=== PATIENT | female | born 1945 | race Caucasian/White ===

== ENCOUNTER 2017-03-01 10:17 | Inpatient (IN) | payer MEDICARE ==
[~2017-03-01] VITALS: Ht 147.3 cm; Wt 63.8 kg
--- NOTE | ~2017-03-01 | CN ---
PATIENT NAME:EDWARD HORN MEDICAL RECORD: [id number] : 43 LOCATION:D[facility] [id number] ADMIT DATE: 03/01/17 ACCOUNT: [id number] CONSULTING PHYSICIAN: DANIELA RODRIGUES MD REFERRING PHYSICIAN: HARJEET ESPINOSA MD DATE OF CONSULTATION: 03/02/2017 CONSULT REQUESTING PHYSICIAN: Harjeet Espinosa MD. REASON FOR CONSULTATION: Pneumonia, acute exacerbation of COPD. HISTORY OF PRESENT ILLNESS: Ms. Horn is a 72-year-old female, who is complaining of shortness of breath, coughing and wheezing for the last 4-5 days. She is also hearing herself wheezing. The cough was productive with a greenish color sputum. There was also associated fever and chills. Denies any chest pain. REVIEW OF SYSTEMS: Mainly in the history of present illness. PAST MEDICAL HISTORY: 1. Asthma. 2. Continued tobacco dependence syndrome. 3. Hypothyroidism. 4. Hypercholesterolemia. 5. Hypertension. PAST SURGICAL HISTORY: Nonsignificant. ALLERGIES: SHE IS ALLERGIC TO ASPIRIN. PRESENT MEDICATIONS: In [employer] was reviewed. PERSONAL AND SOCIAL HISTORY: The patient is still a current every day smoker, almost 1 pack per day. She is a nondrinker. FAMILY HISTORY: Unknown. PHYSICAL EXAMINATION: GENERAL: Now, the patient is lying comfortably in bed. She is in acute distress. VITAL SIGNS: The blood pressure is 128/74, pulse is 78, respiration is 18, temperature 98.4, and SpO2 is 94% on 2 L nasal cannula. HEENT: Conjunctivae are pink. Sclerae nonicteric. NECK: Supple. No JVD. CHEST: There is prolonged expiration with wheezing. HEART: Rate and rhythm regular, normal sound, no murmur. ABDOMEN: Soft, bowel sounds present. No hepatosplenomegaly. RECTAL: Deferred. EXTREMITIES: No cyanosis, no clubbing, no pedal edema. SKIN: Warm. Normal turgor. CENTRAL NERVOUS SYSTEM: The patient is awake and alert. There is no obvious cranial nerve abnormality. The gait was not tested. CHEST RADIOGRAPH: There is infiltrate in the right lower lobe. CONSULT REPORT [id number] [facility] DATA: CBC: WBC is 15.4, hemoglobin 13.1, hematocrit 14.1 and the platelet count 281. Chemistry: Sodium is 140, potassium 4.2, BUN is 25, creatinine 0.9. IMPRESSION: 1. Acute exacerbation of chronic obstructive pulmonary disease. 2. Pneumonia, right lower lobe, most likely community-acquired pneumonia. 3. Acute hypoxic respiratory failure. 4. Tobacco dependence syndrome. 5. Dyspnea. 6. Acute cough. RECOMMENDATION: 1. Albuterol ipratropium nebulizer q.6 hourly. 2. Start Brovana, budesonide nebulizer. Start methylprednisolone IV. Continue Rocephin and Zithromax. 3. Follow up labs and chest radiograph in the morning. Dr. Espinosa, once again, thanks for involving me in the care of Ms. Horn. TRANSINT:[id number] Voice Confirmation ID: [id number] DOCUMENT ID: [id number] DANIELA RODRIGUES MD CC: HARJEET ESPINOSA MD [id number] DICTATION DATE: 03/02/171604 PATIENT APPOINTMENT COORDINATOR: 03/03/17 0055 ADM IN [facility] [address] [id number]
[2017-03-01 11:03] LABS: BASOPHILS 0.2 % (0-2); IMMATURE GRANULOCYTES 0.3 % (0-5); MCH 30.2 pg (26.0-34.0); MONOCYTES 5.4 % (2-11); WBC 12.7 10x3/uL (4.8-10.8)
[2017-03-01 11:37] LABS: EOSINOPHILS 0.1 % (0-7); HEMATOCRIT 43.3 % (36.0-48.0); HEMOGLOBIN 13.9 g/dL (12-16); LYMPHOCYTES 14.3 % (15-50); MCHC 32.1 g/dL (31.0-37.0); MCV 93.9 fL (80.0-100.0); MEAN PLATELET VOLUME 10.2 fL (7.4-10.4); NEUTROPHILS 79.7 % (40-80); PLATELET COUNT 234 10x3/uL (130-400); RBC 4.61 10x6/uL (4.00-5.40); RDW 12.9 % (11.5-14.5)
[2017-03-01 11:48] LABS: ALBUMIN 3.3 g/dL (3.4-5.0); ALKALINE PHOSPHATASE 79 U/L (46-116); ALT (SGPT) 22 U/L (10-68); CALC OSMOLALITY 277 mosm/kg (275-300); CALCIUM 9.2 mg/dL (8.5-10.1); CARBON DIOXIDE 32.9 mmol/L (21.0-32.0); CHLORIDE - SERUM 99 mmol/L (98-107); CREATININE - SERUM 0.7 mg/dL (0.6-1.3); GLUCOSE 114 mg/dL (74-106); PROTEIN - SERUM 7.8 g/dL (6.4-8.2); SODIUM 138 mmol/L (136-145); UREA NITROGEN 16 mg/dL (7-18); eGFR NON AFRICAN AMERICAN 87 mL/min (90-120)
[2017-03-01 11:53] LABS: TROPONIN-I < 0.017 ng/mL (0.000-0.060)
[2017-03-01 12:59] LABS: PRO BNP 66 pg/mL (0-125)
[2017-03-01 16:12] VITALS: BP 134/71; Ht 147.3 cm; Wt 63.8 kg
--- NOTE | 2017-03-01 16:27 | NUR ---
PT ASLEEP AND OXYGEN SAT 88-89%. OXYGEN AT 2LNC APPLIED AND SATS ARE 95%
[2017-03-01] MEDS ORDERED: VENTOLIN HFA18 GM INH (16:36)
[2017-03-01] MEDS ORDERED: COZAAR25 MG PO (16:37)
[2017-03-01] MEDS ORDERED: ARMOUR THYROID30 MG PO (16:38)
[2017-03-01] MEDS ORDERED: POTASSIUM99 M1 PO (16:38)
--- NOTE | 2017-03-01 19:00 | NUR ---
BEDSIDE REPORT RECEIVED AND CARE OF PT ASSUMED. PT LYING IN SEMI SPARROW'S POSITION WATCHING TV. IV IN RIGHT HAND SALINE LOCKED. WILL MONITOR FOR NEEDS.
--- NOTE | 2017-03-01 19:40 | NUR ---
CALLED CERTIFIED PERSONAL TRAINER PHYSICIAN TO INQUIRY ABOUT ORDERS FOR MEDS / DIET. RECEIVED ORDER FOR REGULAR DIET.
--- NOTE | 2017-03-01 19:45 | NUR ---
GAVE SANDWICH TRAY AND DRINK FOR HS SNACK.
[2017-03-01 20:00] VITALS: BP 115/61
[2017-03-02] VITALS: BP 99/59
[2017-03-02 04:00] VITALS: BP 110/53
--- NOTE | 2017-03-02 08:00 | NUR ---
AWAKE AND ALERT AT THIS TIME WAITING ON DR STEWART TO ROUND. PROVIDED WITH COFFEE AT HER REQUEST. DAUGHTER AT BEDSIDE, CALL LIGHT IN REACH. WILL CONTINUE WITH PLAN OF CARE.
[2017-03-02 08:17] VITALS: BP 127/65
[2017-03-02 10:43] LABS: BASOPHILS 0.1 % (0-2); EOSINOPHILS 0 % (0-7); HEMATOCRIT 41.1 % (36.0-48.0); HEMOGLOBIN 13.1 g/dL (12-16); IMMATURE GRANULOCYTES 0.6 % (0-5); LYMPHOCYTES 10.4 % (15-50); MCH 29.8 pg (26.0-34.0); MCHC 31.9 g/dL (31.0-37.0); MCV 93.4 fL (80.0-100.0); MEAN PLATELET VOLUME 10.1 fL (7.4-10.4); MONOCYTES 4.1 % (2-11); NEUTROPHILS 84.8 % (40-80); RDW 12.7 % (11.5-14.5); WBC 15.4 10x3/uL (4.8-10.8)
[2017-03-02 10:45] LABS: PLATELET COUNT 281 10x3/uL (130-400)
[2017-03-02 11:16] LABS: ALBUMIN 3.2 g/dL (3.4-5.0); ANION GAP 10.5 mmol/L (8-16); BILIRUBIN - TOTAL 0.19 mg/dL (0.2-1.3); CALCIUM 9.4 mg/dL (8.5-10.1); CARBON DIOXIDE 31.7 mmol/L (21.0-32.0); POTASSIUM - SERUM 4.2 mmol/L (3.5-5.1); PROTEIN - SERUM 7.9 g/dL (6.4-8.2)
[2017-03-02 11:18] LABS: CREATININE - SERUM 0.9 mg/dL (0.6-1.3)
--- NOTE | 2017-03-02 11:44 | NUR ---
SCHEDULED MEDICATIONS ADMINISTERED AT THIS TIME WITHOUT DIFFICULTY. ASSESSMENT PERFORMED AND PT DENIES NEEDS AT THIS TIME. CALL LIGHT IN REACH AND DAUGHTER AT BEDSIDE. INSTRUCTED PT ON SCD'S AND USE OF INCENTIVE SPIROMETER. SELF POSITIONS AND AMBULATES INDEPENDENTLY. WILL CONTINUE WITH PLAN OF CARE.
[2017-03-02 11:48] LABS: THYROID STIMULATING HORMONE 0.74 uIU/mL (0.36-3.74)
[2017-03-02 12:03] VITALS: BP 128/74
--- NOTE | 2017-03-02 14:13 | NUR ---
NAM SWANSON IN ROOM WITH PT AT THIS TIME. DENIES NEEDS, FAMILY REMAINS AT BEDSIDE AND CALL LIGHT IN REACH. WILL CONTINUE WITH PLAN OF CARE.
[2017-03-02 16:06] VITALS: BP 132/78
--- NOTE | 2017-03-02 19:00 | NUR ---
BEDSIDE REPORT RECEIVED AND CARE OF PT ASSUMED. PT SITTING UP IN BED WATCHING TV. IV IN RIGHT HAND SALINE LOCKED. O2 IN USE AT 2L. PT STATES SHE IS BREATHING EASIER TODAY. WILL MONITOR CLOSLEY FOR NEEDS. CALL LIGHT WITHIN REACH.
[2017-03-02 20:00] VITALS: BP 111/51
--- NOTE | 2017-03-02 21:09 | NUR ---
HS MEDICATIONS GIVEN. WILL CONTINUE TO MONITOR FOR NEEDS.
[2017-03-03] VITALS: BP 112/54
--- NOTE | 2017-03-03 00:13 | NUR ---
GAVE SCHEDULED SOLUMEDROL. PT SITTING UP IN BED...JUST HAD BREATHING TX. WILL CONTINUE TO MONITOR FOR NEEDS. CALL LIGHT WITHIN REACH.
[2017-03-03 04:00] VITALS: BP 107/50
[2017-03-03 04:36] LABS: BASOPHILS 0.1 % (0-2); EOSINOPHILS 0.1 % (0-7); HEMATOCRIT 37.8 % (36.0-48.0); HEMOGLOBIN 11.8 g/dL (12-16); LYMPHOCYTES 5.5 % (15-50); MCH 29.8 pg (26.0-34.0); MCHC 31.2 g/dL (31.0-37.0); MEAN PLATELET VOLUME 10.3 fL (7.4-10.4); MONOCYTES 1.5 % (2-11); NEUTROPHILS 91.8 % (40-80); PLATELET COUNT 265 10x3/uL (130-400); RBC 3.96 10x6/uL (4.00-5.40); RDW 12.8 % (11.5-14.5); WBC 14.1 10x3/uL (4.8-10.8)
[2017-03-03 04:37] LABS: MCV 95.5 fL (80.0-100.0)
[2017-03-03 04:48] LABS: ALBUMIN 2.9 g/dL (3.4-5.0); ANION GAP 7.4 mmol/L (8-16); BILIRUBIN - TOTAL 0.13 mg/dL (0.2-1.3); CALCIUM 8.7 mg/dL (8.5-10.1); CARBON DIOXIDE 32.1 mmol/L (21.0-32.0); CREATININE - SERUM 0.8 mg/dL (0.6-1.3); POTASSIUM - SERUM 4.5 mmol/L (3.5-5.1)
--- NOTE | 2017-03-03 07:54 | NUR ---
AWAKE AND ALERT. ORIENTED X3. NO C/O AT THIS TIME. LUNGS HAVE CRACKLES AND WHEEZES THROUGHOUT LUNG ALVARADO, REPORTS PRODUCTIVE COUGH WITH YELLOWISH SPUTUM. SKIN IS INTACT WITHOUT REDNESS. SL TO LEFT HAND PATENT WITHOUT REDNESS AT INSERTION SITE. REPORTS NO BM IN SEVERAL DAYS. WILL ADDRESS. DENIES NEEDS. OFF UNIT VIA FOR EXRAY.
--- NOTE | 2017-03-03 08:30 | NUR ---
RETURNED FROM EXRAY. TOOK AM MEDS WITHOUT DIFFICUTLY. DENIES NEEDS.
[2017-03-03 09:04] VITALS: BP 128/60
--- NOTE | 2017-03-03 09:05 | NUR ---
Patient Name: EDWARD HORN Admission Status: ER Accout number: [id number] Admission Date: 03-01-2017 : 1945 Admission Diagnosis: Attending: MARYANNE Current LOS: 2 Anticipated DC Date: 03-06-2017 Planned Disposition: Home Primary Insurance: [employer] CHOICE PPO MCR ADVANT Discharge Planning Comments: CM MET WITH PATIENT AND FAMILY REGARDING D/C NEEDS AND PLANS. PATIENT STATED SHE LIVES WITH HER DAUGHTER (QUINTIN) AND HER FAMILY. PATIENTS FAMILY WILL DRIVE HER HOME AT DISCHARGE. PATIENT HAS A RAMP TO ENTER HER HOME AND NO STAIRS INSIDE. PATIENT HAS A WALKER AND BEDSIDE COMMODE AT HOME. PATIENT PCP IS DR. WELLS AND USES [facility] ON [address] FOR HER PHARMACY. PATIENT DOES NOT WANT HOME HEALTH AND HAS NO OTHER NEEDS AT THIS TIME FOR DISCHARGE. CM WILL CONTINUE TO FOLLOW PATIENT WITH D/C NEEDS AND PLANS. PCP DR. [facility] [address]- [phone] QUINTIN LYONS (DAUGHTER) [phone] Work Order Detailer: Elizabeth Betancourt Is the patient Alert and Oriented? Yes 0 * How many steps to enter\exit or inside your home? RAMP 0 * PCP DR. WELLS 0 * Pharmacy [facility] [address] 0 * Preadmission Environment Home with Family 0 * ADLs Independent 0 * Equipment Bedside Commode Walker 0 * List name and contact numbers for known caregivers / representatives who currently or will assist patient after discharge: QUINTIN LYONS (DAUGHTER) [phone] 0 * Community resources currently utilized None 0 * Additional services required to return to the preadmission environment? Yes 0 * Can the patient safely return to the preadmission environment? Yes 0 * Has this patient been hospitalized within the prior 30 days at any hospital? No 0 Grand Total: 0
[2017-03-03 11:40] VITALS: BP 140/66
--- NOTE | 2017-03-03 12:15 | NUR ---
LUNCH SERVED IN ROOM. ATE ALL OF MEAL. DENIES NEEDS.
[2017-03-03 15:52] VITALS: BP 147/61
--- NOTE | 2017-03-03 16:00 | NUR ---
IV TO RIGHT HAND LEAKING. RESITED TO LEFT FOREARM AFTER ONE ATTEMPT WITH 22 G INSIGHT.
--- NOTE | 2017-03-03 16:36 | EC ---
PATIENT:EDWARD HORN DATE OF SERVICE: 03/01/17 SEX: F MEDICAL RECORD: [id number] DATE OF : [birth year] LOCATION:D[facility] AGE OF PATIENT: 72 ADMISSION DATE: 03/01/17 REFERRING PHYSICIAN: INTERPRETING PHYSICIAN: KRISHAN ERIC MD ECHOCARDIOGRAM REPORT ECHO CHARGES 4 ECHO COMPLETE CLINICAL DIAGNOSIS: EDEMA/MURMUR ECHOCARDIOGRAPHIC MEASUREMENTS (adult normal given) AC root (d.<3.7cm) 2.5 LV Septum d (<1.2 cm> 1.4 Valve Excursion 1.0 LV Septum (systole) 1.8 Left Atria (s.<4.0cm> 3.1 LVPW d(<1.2cm) 1.4 RV (d.<2.3cm) 2.7 LVPW (sytole) 1.7 LV diastole(<5.6CM) 3.0 MV E-F(>70mm/sec) LV systole 1.8 LVOT Diameter 1.2 MV exc.(>10mm) 1.4 Est.ejection fraction (50-75%) Pericardial Effusion N DOPPLER: LVIT A 87.0 E 103 LA RVSP 25 LVOT 107 AOP1/2T Asc. Ao 212 RVOT 107 RA PA 154 AV Gradient Peak 17.99 AV Mean 8.72 AV Area 1.0 MV Gradient Peak 5.12 MV Mean 2.74 MV Area COMMENTS: Building Tech: Samuel WAYNE Willow Machine Operator:Barbara Eric TAPE# PACS DATE OF SERVICE: 03/02/2017 Echocardiogram FINDINGS: 1. Left ventricle chamber size is within normal limits. Left ventricular systolic function is normal. Overall ejection fraction estimated at 65%. 2. Left atrium is within normal limits at 3.1 cm. Right atrium and right ventricular chamber sizes are mildly dilated. 3. Valvular structures: Aortic valve demonstrates mild calcific aortic ECHOCARDIOGRAM REPORT [id number] EDWARD HORN stenosis. Valve area calculates right at 1.0 cm-squared. There is a gradient of 18 mm across the valve. The remaining valvular structures have normal structure and motion. 4. Doppler interrogation, elsewise, reveals mild tricuspid regurgitation, no other valvular insufficiency or stenosis and pulmonary systolic pressure is normal, estimated at 25 mmHg. 5. No evidence of pericardial effusion or left ventricular thrombus. TRANSINT:[id number] Voice Confirmation ID: [id number] DOCUMENT ID: [id number] KRISHAN ERIC MD at 1636 CC: [id number] DICTATION DATE: 03/02/17 1630 ELECTROCARDIOGRAPH TECHNICIAN: 03/02/17 1736 ADM IN [place] [id number] [place] [id number]
--- NOTE | 2017-03-03 18:45 | NUR ---
ATE ALL OF SUPPER. NO C/O AT THIS TIME. DENIES NEEDS. NO CHANGES NOTED.
[2017-03-03 20:00] VITALS: BP 106/86
--- NOTE | 2017-03-03 20:06 | NUR ---
BROUGHT PATIENT A SNACK PER HER REQUEST. PATIENT DENIES OTHER NEEDS AT THIS TIME. BED IN LOWEST POSTION AND CALL LIGHT WITHIN REACH. ENCOURAGED THE PATIENT TO CALL IF SHE HAS OTHER NEEDS.
[2017-03-04] VITALS: BP 99/61
[2017-03-04 04:00] VITALS: BP 148/65
[2017-03-04 07:01] LABS: BASOPHILS 0.1 % (0-2); EOSINOPHILS 0 % (0-7); HEMOGLOBIN 12.5 g/dL (12-16); IMMATURE GRANULOCYTES 2.5 % (0-5); LYMPHOCYTES 4.7 % (15-50); MCH 29.9 pg (26.0-34.0); MCHC 31.3 g/dL (31.0-37.0); MCV 95.7 fL (80.0-100.0); MEAN PLATELET VOLUME 10.4 fL (7.4-10.4); MONOCYTES 2.6 % (2-11); NEUTROPHILS 90.1 % (40-80); PLATELET COUNT 304 10x3/uL (130-400); RBC 4.18 10x6/uL (4.00-5.40); WBC 17.6 10x3/uL (4.8-10.8)
[2017-03-04 07:23] LABS: ALBUMIN 3.1 g/dL (3.4-5.0); ANION GAP 10.2 mmol/L (8-16); BILIRUBIN - TOTAL 0.24 mg/dL (0.2-1.3); CALCIUM 8.7 mg/dL (8.5-10.1); CARBON DIOXIDE 28.9 mmol/L (21.0-32.0); CREATININE - SERUM 0.9 mg/dL (0.6-1.3); POTASSIUM - SERUM 4.1 mmol/L (3.5-5.1); PROTEIN - SERUM 7.4 g/dL (6.4-8.2)
[2017-03-04 07:32] VITALS: BP 145/67
--- NOTE | 2017-03-04 07:53 | NUR ---
AWAKE AND ALERT. ORIENTED X3. NO C/O THIS AM. REPORTS NO BM YET. BS ACTIVE X4. ABDOMEN GETTING FIRM. WILL MONITOR. LUNGS HAVE INSPIRATORY WHEEZES THROUGHOUT. OCCASSIONALLY PRODUCTIVE COUGH NOTED. SKIN IS INTACT WITHOUT REDNESS. IV TO LEFT FOREARM IS PATENT WITHOUT REDNESS AT INSERTION SITE. DENIES NEEDS.
--- NOTE | 2017-03-04 10:32 | NUR ---
ATE MOST OF BREAKFAST. REPORTS UP TO BR PER SELF AND HAS HAD 2 SMALL VERY HARD STOOLS. WILL CONTINUE TO MONITOR.
[2017-03-04 11:20] VITALS: BP 132/66
--- NOTE | 2017-03-04 12:15 | NUR ---
LUNCH SERVED IN ROOM. DENIES NEEDS. NO CHAGES.
[2017-03-04 15:26] VITALS: BP 116/53
--- NOTE | 2017-03-04 15:54 | NUR ---
REPORTS NO FURTHER BM'S AT THIS TIME. C/O DRYNESS WITH BLOODY NOSE. SALINE SPRAY ORDERED.
--- NOTE | 2017-03-04 18:07 | NUR ---
ATE ALL OF SUPPER. NO C/O AT THIS TIME. REPORTS GOOD RELIEF OF NASAL DRYNESS WITH USE OF SALINE FLUSH. NO CHANGES NOTED. IV RESITED TO LEFT FOREARM AFTER 2 ATTEMPTS PER [place]CE WITH 22G. OLD IV D/C WITH CATHETER INTACT R/T RENESS AROUND INSERTION SITE. NO CHANGES NOTED.
--- NOTE | 2017-03-04 19:33 | NUR ---
PATIENT SITTING UP IN BED WITH NO SIGNS OF DISTRESS AND DENIES NEEDS AT THIS TIME. BED IN LOWEST POSITION AND CALL LIGHT WITHIN REACH. ENCOURAGED THE PATIENT TO CALL IF SHE HAS NEEDS.
[2017-03-04 20:00] VITALS: BP 150/65
[2017-03-05] VITALS: BP 133/64
[2017-03-05 04:00] VITALS: BP 128/68
[2017-03-05 05:27] LABS: BASOPHILS 0.2 % (0-2); EOSINOPHILS 0 % (0-7); HEMATOCRIT 38.7 % (36.0-48.0); HEMOGLOBIN 11.9 g/dL (12-16); IMMATURE GRANULOCYTES 4.9 % (0-5); LYMPHOCYTES 8.2 % (15-50); MCH 29.6 pg (26.0-34.0); MCHC 30.7 g/dL (31.0-37.0); MCV 96.3 fL (80.0-100.0); MEAN PLATELET VOLUME 10.4 fL (7.4-10.4); MONOCYTES 5.1 % (2-11); NEUTROPHILS 81.6 % (40-80); PLATELET COUNT 283 10x3/uL (130-400); RBC 4.02 10x6/uL (4.00-5.40); RDW 12.9 % (11.5-14.5)
[2017-03-05 05:56] LABS: ALBUMIN 2.7 g/dL (3.4-5.0); ANION GAP 8.7 mmol/L (8-16); BILIRUBIN - TOTAL 0.2 mg/dL (0.2-1.3); CALCIUM 8.2 mg/dL (8.5-10.1); CARBON DIOXIDE 33.7 mmol/L (21.0-32.0); CREATININE - SERUM 0.8 mg/dL (0.6-1.3); POTASSIUM - SERUM 4.4 mmol/L (3.5-5.1); PROTEIN - SERUM 6.3 g/dL (6.4-8.2)
--- NOTE | 2017-03-05 08:14 | NUR ---
AWAKE AND ALERT. ORIENTED X3. NO C/O AT THIS TIME. LUNGS HAVE CRACKLES THROUGHOUT LUNG ALVARADO, OCCASSIONALLY PRODUCTIVE COUGH NOTED. SKIN IS INTACT WITHOUT REDNESS. REPORTS GOOD BM THIS AM. BOWEL SOUNDS ACTIVE AT THIS TIME. SL TO LEFT FOREARM IS PATENT WITHOUT REDNESS AT INSERTION SITE. BREAKFAST SERVED IN ROOM. FEEDS SELF. DENIES NEEDS.
[2017-03-05 09:06] VITALS: BP 136/67
--- NOTE | 2017-03-05 10:27 | NUR ---
ATE ALL OF BREAKFAST. DENIES NEEDS. REPORTS STOOLS ARE IMPROVING IN CONSISTANCY. WILL CONTINUE TO MONITOR.
[2017-03-05 11:48] VITALS: BP 149/67
--- NOTE | 2017-03-05 12:30 | NUR ---
LUNCH SERVED IN ROOM. ATE ALL OF MEAL.
--- NOTE | 2017-03-05 14:30 | NUR ---
VISITORS AT BEDSIDE. SITTING UP IN BED TALKING WITH THEM.
[2017-03-05 16:44] VITALS: BP 146/67
--- NOTE | 2017-03-05 17:16 | NUR ---
ATE ALL OF SUPPER. NO C/O AT THIS TIME. NO CHANGES NOTED. DENIES NEEDS.
[2017-03-05 20:00] VITALS: BP 134/62
--- NOTE | 2017-03-05 20:55 | NUR ---
PATIENT RESTING IN BED AND DENIES NEEDS AT THIS TIME. ADMINISTERED MEDS PER ORDERS. BED IN LOWEST POSITION AND CALL LIGHT WITHIN REACH. ENCOURAGED THE PATIENT TO CALL IF SHE HAS NEEDS.
[2017-03-06 04:00] VITALS: BP 130/70
[2017-03-06 06:08] LABS: BASOPHILS 0.2 % (0-2); EOSINOPHILS 0 % (0-7); HEMATOCRIT 38.5 % (36.0-48.0); HEMOGLOBIN 12.1 g/dL (12-16); LYMPHOCYTES 7.4 % (15-50); MCHC 31.4 g/dL (31.0-37.0); MCV 95.5 fL (80.0-100.0); MEAN PLATELET VOLUME 10.2 fL (7.4-10.4); MONOCYTES 5.2 % (2-11); NEUTROPHILS 80.2 % (40-80); PLATELET COUNT 271 10x3/uL (130-400); RBC 4.03 10x6/uL (4.00-5.40); RDW 12.9 % (11.5-14.5)
[2017-03-06 06:40] LABS: ALBUMIN 2.7 g/dL (3.4-5.0); ALKALINE PHOSPHATASE 70 U/L (46-116); ALT (SGPT) 36 U/L (10-68); BILIRUBIN - TOTAL 0.14 mg/dL (0.2-1.3); CALC OSMOLALITY 286 mosm/kg (275-300); CALCIUM 8.1 mg/dL (8.5-10.1); CARBON DIOXIDE 34.6 mmol/L (21.0-32.0); CHLORIDE - SERUM 105 mmol/L (98-107); CREATININE - SERUM 0.7 mg/dL (0.6-1.3); GLUCOSE 133 mg/dL (74-106); POTASSIUM - SERUM 4.4 mmol/L (3.5-5.1); PROTEIN - SERUM 6.3 g/dL (6.4-8.2); SODIUM 142 mmol/L (136-145); UREA NITROGEN 18 mg/dL (7-18); eGFR NON AFRICAN AMERICAN 87 mL/min (90-120)
--- NOTE | 2017-03-06 07:35 | NUR ---
PATIENT IS AWAKE AND ALERT, RESTING IN HER BED, HOB UP 30 DEGREES. SHE IS WATCHING TV AND STATES THAT SHE ANTICIPATES GOING HOME TODAY. DENIES NEEDS, SOB. CALL LIGHT IS WITHIN HER REACH, ENCOURAGED TO CALL FOR ANY NEEDS.
[2017-03-06 08:08] VITALS: BP 166/73
[2017-03-06] MEDS ORDERED: TESSALON PERLE100 MG PO (10:16)
[2017-03-06] MEDS ORDERED: BROVANA15 MCG/2 M INH (10:16)
[2017-03-06] MEDS ORDERED: IPRAT-ALBUT 0.5-3 ML UPD (10:16)
[2017-03-06] MEDS ORDERED: NICODERM C1 PATCH .2 TRANSDERM (10:16)
[2017-03-06] MEDS ORDERED: PULMICORT0.5 MG/21 UPD (10:17)
[2017-03-06] MEDS ORDERED: FLORAJEN3 CAPS460 MG PO (10:17)
[2017-03-06] MEDS ORDERED: SALINE NASAL SP45 ML NASAL (10:17)
[2017-03-06] MEDS ORDERED: MUCINEX DM ER1 EAC1 PO (10:17)
[2017-03-06] MEDS ORDERED: PROTONIX40 MG PO (10:17)
[2017-03-06] MEDS ORDERED: OMNICEF300 MG PO (10:18)
[2017-03-06] MEDS ORDERED: PREDNISONE10 MG PO (10:18)
--- NOTE | 2017-03-06 11:07 | NUR ---
03/06/2017 11:04 DCP: Discharge Planning Patient Name: EDWARD HORN Encounter No: [id number] : 1945 Primary Insurance: [employer] CHOICE PPO MCR ADVANT Anticipated DC Date: 03-06-2017 Planned Disposition: Home DCP follow-up note: DC order rec'd. Home Nebulizer order faxed and called to Jennifer @ [facility] & will be delivered to patients home this afternoon. Patient in agreement with discharge plan. No changes to plan. Monica Cm
--- NOTE | 2017-03-06 11:35 | NUR ---
REVIEWED DISCHARGE INSTRUCTIONS WITH THE PATIENT. SHE STATES THAT SHE [facility] CALLED AND THERE IS A PROBLEM WITH HER MEDICATIONS. CURRENTLY ON HOLD TO INVESTIG[employer].
--- NOTE | 2017-03-06 11:40 | NUR ---
PA SELENE ROTH NEEDED. INFO RECEIVED AND PASSED TO CASE MANAGEMENT
--- NOTE | 2017-03-06 11:54 | NUR ---
PATIENT WHEELED OUT TO THE FRONT DOOR. SHE IS TO DRIVE HERSELF HOME. SHE UNDERSTANDS THAT HER MEDICATIONS ARE READY AT [facility] WITH THE EXCEPTION OF THE [facility] THAT IS TO BE PREAUTHORIZED.
== END 2017-03-06 11:55 | disposition home or self-care (01) | DRG 189 ==
LOC: D.ER 10:17 → D.MS 14:18
PROVIDERS: Emergency Medicine; ADMIT Emergency Medicine
DX: J96.01 Acute respiratory failure with hypoxia (principal); J18.9 Pneumonia, unspecified organism; J44.0 Chronic obstructive pulmonary disease with (acute) lower respiratory infection; J44.1 Chronic obstructive pulmonary disease with (acute) exacerbation; J45.909 Unspecified asthma, uncomplicated; E03.9 Hypothyroidism, unspecified; I10 Essential (primary) hypertension; E78.00 Pure hypercholesterolemia, unspecified; F17.200 Nicotine dependence, unspecified, uncomplicated

== ENCOUNTER → 2017-12-08 07:41 | Outpatient (CLI) | payer MEDICARE ==
[2017-03-01 16:12] VITALS: BMI 29.3
[~2017-12-08 07:41] MED LIST: ARMOUR THYROID30 MG PO; BROVANA15 MCG/2 M INH; COZAAR25 MG PO; FLORAJEN3 CAPS460 MG PO; IPRAT-ALBUT 0.5-3 ML UPD; MUCINEX DM ER1 EAC1 PO; NICODERM C1 PATCH .2 TRANSDERM; OMNICEF300 MG PO; POTASSIUM99 M1 PO; PREDNISONE10 MG PO; PROTONIX40 MG PO; PULMICORT0.5 MG/21 UPD; SALINE NASAL SP45 ML NASAL; TESSALON PERLE100 MG PO; VENTOLIN HFA18 GM INH
== END | disposition home or self-care (01) ==
LOC: D.RT 12-01 11:00
DX: J44.9 Chronic obstructive pulmonary disease, unspecified (principal)

== ENCOUNTER 2017-12-29 08:17 | Emergency (ER) | payer MEDICARE ==
[2017-03-01 16:12] VITALS: BMI 29.3
== END 2017-12-29 10:47 | disposition home or self-care (01) ==
LOC: D.ER 08:17
DX: J44.1 Chronic obstructive pulmonary disease with (acute) exacerbation (principal); I10 Essential (primary) hypertension; E07.9 Disorder of thyroid, unspecified; F17.200 Nicotine dependence, unspecified, uncomplicated

== ENCOUNTER 2020-05-26 13:40 | Emergency (ER) | payer MEDICARE ==
[~2020-05-26] VITALS: Ht 147.3 cm; Wt 68.2 kg
[2020-05-26 13:50] VITALS: BP 134/68; Ht 147.3 cm; Wt 68.2 kg
[2020-05-26] MEDS ORDERED: VENTOLIN HFA [SP8 GM INH (13:52)
[2020-05-26] MEDS ORDERED: TORADOL10 MG PO (16:26)
== END 2020-05-26 16:57 | disposition home or self-care (01) ==
LOC: D.ER 13:40
DX: M15.1 Heberden's nodes (with arthropathy) (principal); J44.9 Chronic obstructive pulmonary disease, unspecified; Z72.0 Tobacco use; M79.644 Pain in right finger(s)